=== PATIENT | female | born 2000 | race Hispanic/Latino ===

== ENCOUNTER 2023-01-20 05:36 | Emergency (ER) | payer BC ==
[~2023-01-20] VITALS: Ht 149.9 cm; Wt 57.6 kg
[2023-01-20 05:46] VITALS: O2SAT 98
[2023-01-20] MEDS ORDERED: SODIUM CHLORIDE 0.9% 1000ML 1,000 ML ONE (05:47)
[2023-01-20] MEDS ORDERED: ONDANSETRON HCL INJ 2MG/ML 2ML 2 MG/ML VIAL ONE (05:47)
[2023-01-20] MEDS ORDERED: FAMOTIDINE 20 MG/2 ML VIAL IV STA (05:57)
[2023-01-20] MEDS ORDERED: ONDANSETRON HCL INJ 2MG/ML 2ML 2 MG/ML VIAL IV STA (05:57)
[2023-01-20] MEDS ORDERED: SODIUM CHLORIDE 0.9% 1000ML 1,000 ML IV ONE (06:00)
[2023-01-20] MEDS ORDERED: KETOROLAC TROMETHAMINE 30 MG/ML VIAL IV STA (06:12)
[2023-01-20] MEDS ORDERED: KETOROLAC TROMETHAMINE 30 MG/ML VIAL ONE (06:15)
[2023-01-20] MEDS ORDERED: FAMOTIDINE 20 MG/2 ML VIAL IV ONE (06:15)
[2023-01-20] MEDS ORDERED: IOPAMIDOL 370 MG/ML 100 ML INFUS..BTL INJ ONE (06:16)
[2023-01-20] MEDS ORDERED: ONDANSETRON ODT4 MG PO (08:50)
[2023-01-20] MEDS ORDERED: PANTOPRAZOLE SO40 MG PO (08:50)
[2023-01-20 09:29] VITALS: BP 118/62; PULSE 72; RESP 16
== END 2023-01-20 09:30 | disposition home or self-care (01) ==
LOC: FSED 05:42
DX: R10.13 Epigastric pain (principal); R10.11 Right upper quadrant pain; R11.2 Nausea with vomiting, unspecified; R19.7 Diarrhea, unspecified
CPT/HCPCS: 74177; 76705; 80053; 81003; 85025; 99284; J1885; J2405; J7030; Q9967